=== PATIENT | female | born 1965 | race Caucasian/White ===

== ENCOUNTER → 2017-02-09 11:33 | Outpatient (CLI) | payer MEDICARE ==
[2016-11-06 14:49] VITALS: BMI 34.0
[~2017-02-09 11:33] MED LIST: ADVIL200 MG PO; BAYER CHEWABLE81 MG PO; DEMEROL50 MG PO; LEXAPRO10 MG PO; NICODERM C1 PATCH .3 TRANSDERM; PLAVIX75 MG PO; VALIUM 2 MG TAB2 MG PO
== END | disposition home or self-care (01) ==
LOC: D.RAD 11:33
DX: M16.12 Unilateral primary osteoarthritis, left hip (principal)

== ENCOUNTER 2017-07-09 19:43 | Emergency (ER) | payer MEDICARE ==
[2016-11-06 14:49] VITALS: BMI 34.0
== END 2017-07-09 21:25 | disposition home or self-care (01) ==
LOC: D.ER 19:43
DX: S92.521A Displaced fracture of middle phalanx of right lesser toe(s), initial encounter for closed fracture (principal); X58.XXXA Exposure to other specified factors, initial encounter; E11.9 Type 2 diabetes mellitus without complications; F17.200 Nicotine dependence, unspecified, uncomplicated

== ENCOUNTER → 2017-07-13 19:22 | Outpatient (CLI) | payer MEDICARE ==
[2016-11-06 14:49] VITALS: BMI 34.0
== END | disposition home or self-care (01) ==
LOC: D.SLEEP 07-06 08:00
DX: G47.19 Other hypersomnia (principal)

== ENCOUNTER → 2017-08-21 08:48 | Outpatient (CLI) | payer MEDICARE ==
[2016-11-06 14:49] VITALS: BMI 34.0
[~2017-08-21 08:48] MED LIST changes: +FLECTOR1 PATCH TRANSDERM; +LIPITOR10 MG PO; +MULTIPLE VITAMI1 TA1 PO; +VICTOZA0.6 MG/0.1 SQ; +ZANAFLEX4 MG PO
--- NOTE | 2017-08-27 12:47 | EC ---
PATIENT:ROJAS PANDA DATE OF SERVICE: 08/21/17 SEX: F MEDICAL RECORD: [id number] DATE OF : 67 LOCATION:[facility] AGE OF PATIENT: 52 ADMISSION DATE: 08/21/17 REFERRING PHYSICIAN: INTERPRETING PHYSICIAN: RICH OWEN MD ECHOCARDIOGRAM REPORT ECHO CHARGES 4 ECHO COMPLETE CLINICAL DIAGNOSIS: CAD/CP ECHOCARDIOGRAPHIC MEASUREMENTS (adult normal given) AC root (d.<3.7cm) 2.6 cm LV Septum d (<1.2 cm> 1.3 cm Valve Excursion 1.6 cm LV Septum (systole) 1.5 cm Left Atria (s.<4.0cm> 3.2 cm LVPW d(<1.2cm) 1.2 cm RV (d.<2.3cm) 2.5 cm LVPW (sytole) 1.8 cm LV diastole(<5.6CM) 4.5 cm MV E-F(>70mm/sec) cm LV systole 2.6 cm LVOT Diameter 1.6 cm MV exc.(>10mm) cm Est.ejection fraction (50-75%) % Pericardial Effusion N DOPPLER: LVIT cm/sec A 55.0 cm/sec E 86.0 cm/sec LA cm/sec RVSP 17.1 mmHg LVOT 122 cm/sec AOP1/2T m/s Asc. Ao 166 cm/sec RVOT 60.0 cm/sec RA cm/sec PA 90.0 cm/sec AV Gradient Peak 11.1 mmHg AV Mean 6.6 mmHg AV Area 1.3 cm MV Gradient Peak 4.8 mmHg MV Mean 1.4 mmHg MV Area cm COMMENTS: Ham Pumper: Flory DAVIDOE Loan Examiner: Monique Owen TAPE# PACS DATE OF SERVICE: 08/21/2017 PROCEDURE: Transthoracic echocardiogram. FINDINGS: 1. Left ventricle appears to have mild concentric left ventricular hypertrophy. The ejection fraction is 60% to 65%. There is no regional wall motion abnormalities demonstrated on this study. Inflow characteristics are normal. 2. The mitral valve appears to be normal function. There is no evidence of significant mitral regurgitation. ECHOCARDIOGRAM REPORT [id number] ROJAS PANDA 3. The tricuspid valve has normal function with normal right ventricular systolic pressure. 4. The right ventricle has normal size, normal function. There may be mild right ventricular hypertrophy. 5. The right atrium has normal size, normal function. 6. The aortic valve has normal structure, normal function. 7. The pericardium is normal. 8. Interatrial septum appears to be normal. CONCLUSIONS: The patient has evidence of left ventricular hypertrophy. It is mild in nature with preserved LV systolic function; otherwise, normal echocardiogram. TRANSINT:[id number] Voice Confirmation ID: [id number] DOCUMENT ID: [id number] RICH OWEN MD at 1247 CC: [id number] DICTATION DATE: 08/24/17 0753 ASSEMBLY ASSOCIATE: 08/24/17 0838 [facility] CLI 08/21/17 [id number] [place] [address]
== END | disposition home or self-care (01) ==
LOC: D.ECHO 08:48
DX: I25.10 Atherosclerotic heart disease of native coronary artery without angina pectoris (principal); I07.9 Rheumatic tricuspid valve disease, unspecified

== ENCOUNTER 2017-09-08 06:17 | Outpatient (CLI) | payer MEDICARE ==
--- NOTE | ~2017-09-08 | HEMODYNAMI ---
PATIENT:ROJAS PANDA MEDICAL RECORD: [id number] : 67 LOCATION:[facility] ADMISSION DATE: 09/08/17 Generatedon:09/08/20178:38 Patient name: ROJAS PANDA Patient #: [id number] SSN: : 1965 Date of study: 09/08/2017 Page: Of Hemodynamic Procedure Report Patient Data Patient Demographics Procedure consent was obtained First Name: ROJAS Gender: Female Last Name: AMARILYS : 1965 Middle Initial: PHUC Age: 52 year(s) Patient #: [id number] Race: Additional ID: [id number] Contact details [address]: [address] [place] [address] State: [place] City: [place] Zip code: [address] Past Medical History Allergies Allergen Reaction Date Comments Reported Other allergy 11/07/2016 PCN Penicillins 09/08/2017 Admission Admission Data Admission Date: 09/08/2017 Admission Time: 6:17 Lab Results Lab Result Date: 09/08/2017 Lab Result Time: 0:00 Biochemistry Name Units Result Min Max BUN mg/dl 7 --(*---)-- 7 18 Creatinine mg/dl 0.9 --(-*--)-- 0.6 1.3 CBC Name Units Result Min Max Hemoglobin g/dl 13.9 --(*---)-- 13.5 17.5 Procedure Procedure Types Cath Procedure Diagnostic Procedure C [facility] w/Coronaries Procedure Description Procedure Date Procedure Date: 09/08/2017 Procedure Start Time: 8:19 Procedure End Time: 8:37 Procedure Staff Name Function Asia Alston MD Ordering physician Bear Samuel MD Performing Physician Elmira Guillen RT Scrub Semaj Morocho RN Nurse Hank Schroeder RT Monitor Procedure Data Cath Procedure Fluoroscopy Diagnostic fluoroscopy Total fluoroscopy Time: 3.9 time: 3.9 min min Diagnostic fluoroscopy Total fluoroscopy dose: 460 dose: 460 mGy mGy Contrast Material Contrast Material Type Amount (ml) Isovue 300 42 Entry Location Entry Primary Successful Side Size Upsize Upsize Entry Closure Walker ccessful Closure Location (Fr) 1 (Fr) 2 (Fr) Remarks Device Remarks Radial Right 6 Fr Mechanical artery Short Compression Estimated blood loss: 10 ml Diagnostic catheters Device Type Used For End Catheter Placement Diagnostic Terumo 5Fr Procedure Badger 110cm catheter Diagnostic Infinity 5Fr AR MOD Catheter Procedure Medications Medication Administration Route Dosage Oxygen NC 2 l/min Benadryl I.V. 50 mg Lidocaine 2% added to field 20 Heparin Flush Bag added to field 2 bags (1000units/500ml NS) 0.9% NaCl I.V. 100 ml/hr Versed I.V. 2 mg Fentanyl I.V. 25 mcg Radial Cocktail I.A. 1 syringe (Verapomil 2mg/Nitro 400mcg/Heparin 1500units) Hemodynamics Rest HGB: 13.9 (g/dl) Heart Rate: 0 (bpm) Pressure Samples Time Site Value (mmHg) Purpose Heart Use Rate(bpm) 8:29 LV 108/8,10 Snapshot 65 8:30 AO 107/76(91) Pullback 66 8:30 LV 113/11,14 Pullback 66 Gradients Valve Time Site 1 Site 2 Mean SEP/DFP Peak To Heart Use (mmHg) (sec/min) Peak Rate (mmHg) (bpm) Aortic 8:30 LV AO 6 16 6 66 113/11,14 107/76(91) Calculations Valve P-P Mean Valve Index Valve Source Name Gradient Area Flow (cm2) Aortic 6 6 6 6 Snapshots Pre Cath Intra NCS Post Cath Vital Signs Time Heart Resp SPO2 etCO2 NIBP (mmHg) Rhythm Pain Sedation Rate (ipm) (%) (mmHg) Status Level (bpm) 8:08:35 61 25 97 0 123/77(92) NSR 0 (11) 10(A) , No pain 8:13:20 64 24 96 16.5 121/72(98) NSR 0 (11) 10(A) , No pain 8:18:06 58 14 99 11.2 116/64(101) NSR 0 (11) 10(A) , No pain 8:22:51 61 15 96 40.6 129/69(94) NSR 0 (11) 10(A) , No pain 8:27:32 65 16 98 35.3 107/55(80) NSR 0 (11) 10(A) , No pain 8:32:12 66 14 96 45.9 107/57(81) NSR 0 (11) 10(A) , No pain 8:36:53 70 16 27 101/63(76) NSR 0 (11) 10(A) , No pain Medications Time Medication Route Dose Verified Delivered Reason Notes E ffectiveness by by 8:16:18 Oxygen NC 2 l/min Bear Buffie used for Jimmie Morocho RN procedure 8:16:31 Benadryl I.V. 50 mg Bear Buffie used for Jimmie Morocho RN procedure 8:20:39 Lidocaine 2% added 20ml Bear Bear for local to vial Jimmie Samuel MD anesthetic field HOYT 8:20:46 Heparin Flush added 2 bags Bear Bear used for Bag to Jimmie Samuel MD procedure (1000units/500ml field HOYT NS) 8:21:32 0.9% NaCl I.V. 100 Bear Buffie Per ml/hr Jimmie cook MD 8:21:44 Versed I.V. 2 mg Bear Buffie for sedation Jimmie Morocho RN, MD 8:21:53 Fentanyl I.V. 25 mcg Bear Buffie Per Jimmie cook MD 8:23:49 Radial Cocktail I.A. 1 Bear Bear for (Verapomil syringe Jimmie Samuel MD vasodilation 2mg/Nitro 400mcg/Heparin 1500units) Procedure Log Time Note 7:48:17 Diagnostic Cath Status : Elective 7:57:17 Semaj Morocho RN sent for patient. Start room use. 7:57:20 Time tracking: Regular hours 7:57:27 Plan of Care:Hemodynamics will remain stable., Cardiac rhythm will remain stable., Comfort level will be maintained., Respiratory function will remain adequate., Patient/ family verbilizes understanding of procedure., Procedure tolerated without complication., Recovers from procedure without complications.. 8:02:22 H&P Date Dictated: 09/02/2017 Within 30 days and on chart., H&P Addendum completed by physician on day of procedure. (MUST COMPLETE FOR ALL OUTPATIENTS). 8:03:40 Patient received from Pre/Post Procedure Room to CCL 1 Alert and oriented. Tansferred to table in Supine position. 8:03:41 Warm blankets applied, and pawan hugger turned on for patient comfort. 8:03:42 Correct patient and procedure confirmed by team. 8:03:43 Signed procedure consent form obtained from patient. 8:03:44 ECG and BP/O2 sat monitors applied to patient. 8:03:45 Full Disclosure recording started 8:07:42 Vital chart was started 8:07:43 Baseline sample Acquired. 8:08:30 Baseline sample Acquired. 8:08:35 Rhythm: sinus rhythm 8:08:37 Baseline sample Acquired. 8:08:44 Pre-procedure instructions explained to patient. 8:08:44 Pre-op teaching completed and patient verbalized understanding. 8:08:47 Family in waiting room. 8:08:57 Patient NPO since Midnight. 8:09:06 Patient allergic to Penicillins 8:09:11 Is the patient allergic to Iodine/contrast media? No. 8:09:16 Is patient on blood thinner?Yes 8:09:20 ACC The patient was administered the following blood thiners within the last 24 hours: ACCPlavix 8:09:36 Patient diabetic? Yes. 8:09:50 If diabetic: On Metformin? No 8:09:55 Patient not . Patient has had tubal. 8:09:58 ----Pre-sedation anethsthesia assessment.---- 8:10:01 Previous problem with sedation/anesthesia? No ? 8:10:03 Snore? Yes 8:10:04 Sleep apnea? No 8:10:06 Deviated septum? No 8:10:07 Opens mouth fully? Yes 8:10:08 Sticks out tongue? Yes 8:10:13 Airway obstruction? No ? 8:10:16 Dentures? No ? 8:10:28 Pre procedure: right dorsailis pedis pulse 1+ Palpable, but thready & weak; easily obliterated 8:10:33 Patient pain scale 0/10 ?. 8:10:57 IV patent on arrival in left hand with 0.9% NaCl at [facility]. 8:15:21 Lab Result : BUN 7 mg/dl 8:15:21 Lab Result : Hemoglobin 13.9 g/dl 8:15:21 Lab Result : Creatinine 0.9 mg/dl 8:15:37 Lab results completed and on chart. 8:15:43 Right Radial & Right Groin area was prepped with chlora-prep and draped in sterile fashion 8:15:46 Alarms reviewed by R. N. 8:15:48 Sharps counted by scrub and verified by R.N. 8:15:51 Physician arrived 8:15:53 --------ALL STOP TIME OUT------ 8:15:54 Final Timeout: patient, procedure, and site verified with staff and physician. All members of the team are in agreement. 8:15:56 Right Radial & Right Groin site verified by team. 8:16:00 Physical assessment completed. ASA score P 2 - A patient with mild systemic disease as per Bear Samuel MD. 8:16:06 Sedation plan: IV Moderate Sedation Versed, Fentanyl 8:16:18 Oxygen 2 l/min NC was administered by Semaj Morocho RN; used for procedure; 8:16:31 Benadryl 50 mg I.V. was administered by Semaj Morocho RN; used for procedure; 8:19:18 Use device set Radial Dx 8:19:20 Acist Syringe opened to sterile field. 8:19:20 Medline Cath Pack opened to sterile field. 8:19:21 Bag Decanter opened to sterile field. 8:19:21 Terumo 6Fr Slender Glidesheath opened to sterile field. 8:19:22 St Hamilton 260cm J .035 wire opened to sterile field. 8:19:23 Acist Hand Control opened to sterile field. 8:19:23 Acist Manifold opened to sterile field. 8:19:24 Tegaderm 4 x 4 opened to sterile field. 8:19:25 MBrace Wrist Support opened to sterile field. 8:19:27 Procedure started. 8:19:33 Local anesthetic to right radial artery with Lidocaine 2% by Bear Samuel MD.INITIAL ACCESS ONLY 8:20:39 Lidocaine 2% 20ml vial added to field was administered by Bear Samuel MD; for local anesthetic; 8:20:46 Heparin Flush Bag (1000units/500ml NS) 2 bags added to field was administered by Bear Samuel MD; used for procedure; 8:21:32 0.9% NaCl 100 ml/hr I.V. was administered by Semaj Morocho RN; Per physician; 8:21:44 Versed 2 mg I.V. was administered by Semaj Morocho RN; for sedation; 8:21:53 Fentanyl 25 mcg I.V. was administered by Semaj Morocho RN; Per physician; 8:22:34 A 6 Fr Short sheath was inserted into the Right Radial artery 8:23:10 A Diagnostic Terumo 5Fr Badger 110cm catheter was advanced over the wire and used for Procedure. 8:23:49 Radial Cocktail (Verapomil 2mg/Nitro 400mcg/Heparin 1500units) 1 syringe I.A. was administered by Bear Samuel MD; for vasodilation; 8:26:27 LCA angiography performed. 8:27:11 Catheter removed. 8:28:07 A Diagnostic Infinity 5Fr AR MOD Catheter was advanced over the wire and used for . 8:29:39 LV hemodynamics recorded. 8:29:41 LV gram done using CAAL 8:29:50 EF : 55 % 8:31:20 RCA angiography performed. 8:32:32 Catheter removed. 8:32:54 Terumo TR Band Standard opened to sterile field. 8:33:13 Sheath removed intact; hemostasis achieved with Mechanical Compression to the Right Radial artery. 8:33:18 Procedure ended.(Physican Out) 8:33:31 Fluoroscopy time 03.90 minutes. 8:33:37 Fluoroscopy dose: 460 mGy 8:33:37 Flurop Dose total: 460 8:33:46 Contrast amount:Isovue 300 42ml. 8:33:47 Sharps counted by scrub and verified by R.N. 8:36:38 TR band inflated with 11cc of air. 8:36:40 Insertion/operative site no bleeding no hematoma. 8:36:49 Post right radial artery:stable 8:36:54 Post-procedure physical assessment completed. ASA score P 2 - A patient with mild systemic disease as per Bear Samuel MD. 8:37:00 Post procedure rhythm: unchanged., sinus rhythm 8:37:05 Estimated blood loss: 10 ml 8:37:06 Post procedure instruction explained to patient.Patient verbalizes understanding. 8:37:07 Patient needs reinforcement of post procedure teaching. 8:37:08 Procedure and supply charges have been captured, reviewed, submitted and are correct. 8:37:13 Vital chart was stopped 8:37:14 See physician's report for complete and final results. 8:37:16 Report given to Pre/Post Procedure Room. 8:37:20 Patient transfered to Pre/Post Procedure Room with Stretcher. 8:37:23 Procedure ended. 8:37:23 Full Disclosure recording stopped 8:37:28 End room use (Document Last) Device Usage Item Name Manufacture Quantity Catalog Hospital Part Current Minimal Lot# / Number Charge Number Stock Stock Serial# Code Acist Acist 1 [id number] [id number] 602490 565888 20 Syringe Medical [employer] Inc Medline Cardinal 1 [id number] 22037 417062 5 Cath Pack Health Bag Microtek 1 2002S 536887 57194 825490 5 Decanter Medical Inc. Terumo 6Fr Terumo 1 [id number] 609826 699335 069844 [address] St Hamilton 1 786306 113752 436004 518739 30 260cm J .035 wire Acist Hand Acist 1 33757 351951 347308 119332 5 Control Medical Systems Inc Acist Acist 1 38732 770070 084478 884059 5 Manifold Medical Systems Inc Tegaderm 4 3M 1 1626W 788260 718292 244104 5 x 4 MBrace Advanced 1 140-0250-00 575911 04236 671578 5 Wrist Vascular Support Dynamics Diagnostic Terumo 1 90-5018 396223 649915 462395 5 Terumo 5Fr Badger 110cm catheter Diagnostic Cardinal 1 [id number] 734204 172687 193374 15 [employer] 5Fr AR MOD Catheter Terumo TR Terumo 1 [id number] 265202 307970 417822 40 Band Standard Signature Audit [place] Stage Time Signature Unsigned Intra-Procedure 09/08/2017 Hank Schroeder 8:38:03 AM RT(R) (CV) Signatures Monitor : Hank Schroeder RT Signature : Date : Time : [facility] [address] [place] [address]
[~2017-09-08 06:17] MED LIST changes: -FLECTOR1 PATCH TRANSDERM; -LIPITOR10 MG PO; -MULTIPLE VITAMI1 TA1 PO; -VICTOZA0.6 MG/0.1 SQ; -ZANAFLEX4 MG PO
[2017-09-08] MEDS ORDERED: LIPITOR10 MG PO (06:41)
[2017-09-08] MEDS ORDERED: MULTIPLE VITAMI1 TA1 PO (06:42)
[2017-09-08] MEDS ORDERED: FLECTOR1 PATCH TRANSDERM (06:42)
[2017-09-08] MEDS ORDERED: ZANAFLEX4 MG PO (06:43)
[2017-09-08] MEDS ORDERED: VICTOZA0.6 MG/0.1 SQ (06:45)
[2017-09-08 06:50] VITALS: BP 123/79; BMI 33.2
[2017-09-08 07:10] LABS: BASOPHILS 0.6 % (0-2); EOSINOPHILS 2.2 % (0-7); HEMOGLOBIN 13.9 g/dL (12-16); IMMATURE GRANULOCYTES 0.2 % (0-5); LYMPHOCYTES 19.8 % (15-50); MCH 28.5 pg (26.0-34.0); MCHC 33.1 g/dL (31.0-37.0); MCV 86.2 fL (80.0-100.0); MEAN PLATELET VOLUME 10.9 fL (7.4-10.4); MONOCYTES 8.3 % (2-11); NEUTROPHILS 68.9 % (40-80); PLATELET COUNT 370 10x3/uL (130-400); RBC 4.87 10x6/uL (4.00-5.40); RDW 13.5 % (11.5-14.5); WBC 9.4 10x3/uL (4.8-10.8)
[2017-09-08 07:18] LABS: ANION GAP 12.9 mmol/L (8-16); CALCIUM 9.5 mg/dL (8.5-10.1); CREATININE - SERUM 0.9 mg/dL (0.6-1.3); POTASSIUM - SERUM 3.9 mmol/L (3.5-5.1)
[2017-09-08 07:24] LABS: CHOL - HDL RATIO 3.5 ratio (2.3-4.1); LDL-HDL RATIO 1.8 ratio (1.5-3.5)
--- NOTE | 2017-09-08 10:00 | NUR ---
3CC OF AIR REMOVED FROM TR BAND, NO BLEEDING NOTED. VSS. 2L NC, NO RESP DISTRESS. VSS. DENIES ANY NAUSEA OR PAIN. FAMILY AT BEDSIDE, CALL LIGHT WITHIN REACH.
--- NOTE | 2017-09-08 10:15 | NUR ---
3CC OF AIR REMOVED FROM TR BAND, NO BLEEDING NOTED. DRINK AND SANDWICH TRAY GIVEN. NO C/O NAUSEA.
--- NOTE | 2017-09-08 10:30 | NUR ---
4CC OF AIR REMOVED FROM TR BAND, NO BLEEDING NOTED.
--- NOTE | 2017-09-08 10:40 | NUR ---
LEFT PIV D/C'D WITH CATHETER INTACT, BAND AID TO SITE. UP TO BEDSIDE TO GET DRESSED.
--- NOTE | 2017-09-08 10:55 | NUR ---
TO RESTROOM TO VOID.
--- NOTE | 2017-09-08 10:55 | NUR ---
DISCHARGE INSTRUCTIONS GIVEN, VERBALIZED UNDERSTANDING.
--- NOTE | 2017-09-08 11:05 | NUR ---
TAKEN OUT VIA WHEELCHAIR BY CATH CMM TECHNICIAN. LEFT FACILITY WITH AND ALL PERSONAL BELONGINGS.
== END 2017-09-08 11:05 | disposition home or self-care (01) ==
LOC: D.CATH 06:17
PROVIDERS: Internal Medicine Cardiovascular Disease
DX: I25.119 Atherosclerotic heart disease of native coronary artery with unspecified angina pectoris (principal); T82.855A Stenosis of coronary artery stent, initial encounter; R94.39 Abnormal result of other cardiovascular function study; Z01.812 Encounter for preprocedural laboratory examination

== ENCOUNTER → 2017-11-02 13:03 | Outpatient (CLI) | payer MEDICARE ==
[~2017-11-02 13:03] MED LIST changes: +FLECTOR1 PATCH TRANSDERM; +LIPITOR10 MG PO; +MULTIPLE VITAMI1 TA1 PO; +VICTOZA0.6 MG/0.1 SQ; +ZANAFLEX4 MG PO
== END | disposition home or self-care (01) ==
LOC: D.CT 10-26 14:30
DX: I73.9 Peripheral vascular disease, unspecified (principal)

== ENCOUNTER 2019-04-07 03:29 | Observation (INO) | payer MEDICARE ==
[2019-04-07] VITALS (11 sets, daily range): BP systolic 102–124; BP diastolic 49–77; Ht 152.4 cm; Wt 80.5 kg
[~2019-04-07] VITALS: Ht 152.4 cm; Wt 80.5 kg
--- NOTE | ~2019-04-07 | OP ---
PATIENT NAME: ROJAS PANDA MEDICAL RECORD: [id number] :67 LOCATION:D.M2 D.2124 ADMISSION DATE:04/07/19 SURGEON: LAYO MATUTE MD DATE OF OPERATION: 04/08/2019 PROCEDURES: 1. Left heart catheterization. 2. Selective coronary angiography. 3. Left ventriculogram. INDICATION: Angina, coronary artery disease, previous PTCA stent, bradycardia, and noninsulin dependent diabetes. PROCEDURE IN DETAIL: After informed consent was obtained and after a detailed description of the risks, benefits as well as alternative therapies, the patient elected to proceed with angiogram and heart catheterization. The right radial area was prepped and draped in normal sterile fashion. Right radial artery was cannulated via modified Seldinger technique with placement of 5-Icelandic sheath. All catheters exchanged through this sheath. FINDINGS: The left ventriculogram was performed in standard 30-degree CAAL view, reveals good cardiac wall motion throughout all segments. Overall ejection fraction estimated 60%. SELECTIVE CORONARY ANGIOGRAPHY: 1. Left main has no significant angiographic disease. 2. Left anterior descending has mild irregularities, but no flow-limiting stenosis. 3. The left circumflex has mild irregularities, but no flow-limiting stenosis. 4. The right coronary has previously placed stents, these are widely patent with no significant restenosis. No disease elsewise at the RCA or its branches. OVERALL IMPRESSION: Wide patency of the previously placed stents, no disease elsewise. Normal LV function. Chest pain is most likely secondary to her sleep apnea, not cardiac in nature. TRANSINT:[id number] Voice Confirmation ID: [id number] DOCUMENT ID: [id number] LAYO MATUTE MD CC: [id number] DICTATION DATE: 04/08/19 0857 CHIEF CONTROLLER STATION: 04/08/19 1139 ADM IN [facility] [address] [place] [address]
--- NOTE | ~2019-04-07 | HEMODYNAMI ---
PATIENT:ROJAS PANDA MEDICAL RECORD: [id number] : 67 LOCATION:[facility] D.[address] CLINICT# [id number] ADMISSION DATE: 04/07/19 Generatedon:04/08/20198:57 Patient name: ROJAS PANDA Patient #: [id number] SSN: : 1965 Date of study: 04/08/2019 Page: Of Hemodynamic Procedure Report Patient Data Patient Demographics Procedure consent was obtained First Name: ROJAS Gender: Female Last Name: AMARILYS : 1965 Middle Initial: PHUC Age: 53 year(s) Patient #: [id number] Race: Additional ID: [id number] Contact details [address]: [address] [place] [address] State: [place] City: [place] Zip code: [address] Past Medical History Allergies Allergen Reaction Date Comments Reported Other allergy 11/07/2016 PCN Penicillins 09/08/2017 Admission Admission Data Admission Date: 04/07/2019 Admission Time: 12:44 Admit Source: Other Room #: D.2124 Height (in.): 60 BSA: 1.78 (m2) Height (cm.): 152.4 BMI: 34.88 (kg/m2) Weight (lbs.): 178.58 Weight (kg.): 81 Lab Results Lab Result Date: 04/08/2019 Lab Result Time: 0:00 Biochemistry Name Units Result Min Max BUN mg/dl 13 --(--*-)-- 7 18 Creatinine mg/dl 0.8 --(-*--)-- 0.6 1.3 CBC Name Units Result Min Max Hemoglobin g/dl 13.1 -*(----)-- 13.5 17.5 Procedure Procedure Types Cath Procedure Diagnostic Procedure [facility] w/Coronaries Procedure Description Procedure Date Procedure Date: 04/08/2019 Procedure Start Time: 8:49 Procedure End Time: 8:56 Procedure Staff Name Function Kartik Tirado MD Performing Physician Christine Godfrey RN Nurse Hanane Francis RT Scrub Dyllan Elizabeth RT Monitor Procedure Data Cath Procedure Fluoroscopy Diagnostic fluoroscopy Total fluoroscopy Time: 1.4 time: 1.4 min min Diagnostic fluoroscopy Total fluoroscopy dose: 503 dose: 503 mGy mGy Contrast Material Contrast Material Type Amount (ml) Isovue 370 51 Entry Location Entry Primary Successful Side Size Upsize Upsize Entry Closure Walker ccessful Closure Location (Fr) 1 (Fr) 2 (Fr) Remarks Device Remarks Radial Right 6 Fr Mechanical artery Short Compression Estimated blood loss: 10 ml Diagnostic catheters Device Type Used For End Catheter Placement DIAGNOSTIC Mackinaw 110cm 5 Procedure Fr catheter ([id number]) Procedure Complications No complications Procedure Medications Medication Administration Route Dosage 0.9% NaCl I.V. 100 ml/hr Oxygen etCO2 Nasal cannula 2 l/min Lidocaine 2% added to field 20 Heparin Flush Bag added to field 2 bags (1000units/500ml NS) Radial Cocktail added to field 1 syringe (Verapamil 2mg/Nitro 400mcg/Heparin 1500units) Versed I.V. 2 mg Fentanyl I.V. 50 mcg Versed I.V. 1 mg Fentanyl I.V. 25 mcg Hemodynamics Rest BSA: 1.78 (m2) HGB: 13.1 (g/dl) O2 Consumption: Estimated: 158.78 (ml/min) O2 Co nsumption indexed: Estimated:89.2 (ml/min/m) Heart Rate: 49 (bpm) Snapshots Pre Cath Intra NCS Post Cath Vital Signs Time Heart Resp SPO2 etCO2 NIBP (mmHg) Rhythm Pain Sedation Rate (ipm) (%) (mmHg) Status Level (bpm) 8:12:31 49 13 99 38.3 127/75(87) SB 0 (11) 10(A) , No pain 8:16:45 54 10 95 48.9 127/68(88) SB 0 (11) 10(A) , No pain 8:20:55 56 14 96 49.6 139/83(102) SB 0 (11) 10(A) , No pain 8:25:08 56 16 96 47.4 146/82(103) SB 0 (11) 10(A) , No pain 8:29:22 63 16 98 51.9 136/87(115) SB 0 (11) 10(A) , No pain 8:33:32 65 15 98 54.2 136/86(118) SB 0 (11) 10(A) , No pain 8:37:42 62 16 98 44.4 130/86(92) SB 0 (11) 10(A) , No pain 8:41:52 57 15 98 47.4 125/79(102) SB 0 (11) 10(A) , No pain 8:45:58 62 15 98 41.4 119/82(92) SB 0 (11) 9(A) , No pain 8:49:57 63 15 97 48.9 118/93(110) SB 0 (11) 9(A) , No pain 8:53:59 69 16 98 49.7 123/81(99) SB 0 (11) 10(A) , No pain Medications Time Medication Route Dose Verified Delivered Reason Notes Ef fectiveness by by 8:12:15 0.9% NaCl I.V. 100 Kartik Christine used for ml/hr Celestino Godfrey dry kiln operator helper 8:12:21 Oxygen etCO2 2 l/min Kartik Christine used for Nasal Celestino Godfrey procedure cannula RN 8:12:26 Lidocaine 2% added 20ml Kartik Kartik for local to vial Celestino Tirado MD anesthetic field 8:12:30 Heparin Flush added 2 bags Kartik Kartik used for Bag to Celestino Tirado MD procedure (1000units/500ml field NS) 8:12:36 Radial Cocktail added 1 Kartik Kartik used for (Verapamil to syringe Celestino Tirado MD procedure 2mg/Nitro field 400mcg/Heparin 1500units) 8:42:13 Versed I.V. 2 mg Kartik Christine for Celestino Godfrey sedation RN 8:42:19 Fentanyl I.V. 50 mcg Kartik Christine for Celestino Godfery sedation RN 8:45:04 Fentanyl I.V. 25 mcg Kartik Christine for Celestino Godfrey sedation RN 8:45:55 Versed I.V. 1 mg Kartik Christine for Celestino Godfrey sedation security systems administrator Log Time Note 7:47:22 Lab Result : BUN 13 mg/dl 7:47:22 Lab Result : Hemoglobin 13.1 g/dl 7:47:22 Lab Result : Creatinine 0.8 mg/dl 7:48:36 Admit Source: Other 7:48:40 Patient Weight : 178.58 lbs 7:48:44 Patient Height : 60 inches 7:57:35 Hank Schroeder RT(R) (CV) sent for patient. Start room use. 7:57:36 Time tracking: Regular hours (M-F 7:00 - 5:00) 7:57:41 Plan of Care:Hemodynamics will remain stable., Cardiac rhythm will remain stable., Comfort level will be maintained., Respiratory function will remain adequate., Patient/ family verbilizes understanding of procedure., Procedure tolerated without complication., Recovers from procedure without complications.. 8:02:04 Patient received from Med II to CCL 2 Alert and oriented. Tansferred to table in Supine position. 8:02:05 Warm blankets applied, and pawan hugger turned on for patient comfort. 8:02:06 Correct patient and procedure confirmed by team. 8:02:07 Signed procedure consent form obtained from patient. 8:02:09 ECG and BP/O2 sat monitors applied to patient. 8:11:22 Vital chart was started 8:11:23 Baseline sample Acquired. 8:11:26 Rhythm: sinus rhythm 8:11:27 Full Disclosure recording started 8:11:31 H&P Date Dictated: 04/08/2019 Within 30 days and on chart., H&P Addendum completed by physician on day of procedure. (MUST COMPLETE FOR ALL OUTPATIENTS). 8:11:32 Pre-procedure instructions explained to patient. 8:11:33 Pre-op teaching completed and patient verbalized understanding. 8:11:34 Family in waiting room. 8:11:35 Patient NPO since Midnight. 8:11:37 Is the patient allergic to Iodine/contrast media? No. 8:11:38 Was the patient premedicated? No 8:11:40 Is patient on blood thinner?No 8:11:41 Patient diabetic? Yes. 8:11:44 Previous problem with sedation/anesthesia? No ? 8:11:46 Snore? Yes 8:11:47 Sleep apnea? Yes 8:11:48 Deviated septum? No 8:11:49 Opens mouth fully? Yes 8:11:50 Sticks out tongue? Yes 8:11:52 Airway obstruction? No ? 8:12:14 Dentures? Yes lower in tight 8:12:15 0.9% NaCl 100 ml/hr I.V. was administered by Christine Godfrey RN; used for procedure; 8:12:21 Oxygen 2 l/min etCO2 Nasal cannula was administered by Christine Godfrey RN; used for procedure; 8:12:21 Patient pain scale 0/10 ?. 8:12:26 Lidocaine 2% 20ml vial added to field was administered by Kartik Tirado MD; for local anesthetic; 8:12:28 IV patent on arrival in left forearm with 0.9% NaCl at KVO. 8:12:30 Heparin Flush Bag (1000units/500ml NS) 2 bags added to field was administered by Kartik Tirado MD; used for procedure; 8:12:30 Lab results completed and on chart. 8:12:34 Right Radial & Right Groin area was prepped with chlora-prep and draped in sterile fashion 8:12:35 Alarms reviewed by R. N. 8:12:36 Radial Cocktail (Verapamil 2mg/Nitro 400mcg/Heparin 1500units) 1 syringe added to field was administered by Kartik Tirado MD; used for procedure; 8:12:36 Sharps counted by scrub and verified by R.N. 8:34:45 Use device set Radial Dx or PCI 8:34:47 Tegaderm 4 x 4 (1626W) opened to sterile field. 8:34:49 ACIST Hand Control (31799) opened to sterile field. 8:34:49 ACIST Manifold (27771) opened to sterile field. 8:34:50 ACIST Syringe (17312) opened to sterile field. 8:34:51 Medline Cath Pack ([id number]) opened to sterile field. 8:34:51 Bag Decanter (2002) opened to sterile field. 8:34:52 DIAGNOSTIC WIRE .035 260cm J wire (746016) opened to sterile field. 8:34:52 MBrace Wrist Support ([id number]) opened to sterile field. 8:34:53 SHEATH 6FR Slender (82-7020) opened to sterile field. 8:40:29 --------ALL STOP TIME OUT------ 8:40:29 Final Timeout: patient, procedure, and site verified with staff and physician. All members of the team are in agreement. 8:40:35 Right Radial & Right Groin site verified by team. 8:40:39 Maximum allowable Isovue 370 dose 300ml. Physician notified. (300ml for normal creatinines. For patients with creatinine of 1.7 or higher multiply weight(kg) x 5 divided by creatinine.) 8:40:43 Fire Safety Assessment: A--An alcohol-based skin anteseptic being used preoperatively., C--Open oxygen or nitrous oxide is being used., D--An ESU, laser, or fiber-optic light is being used. 8:40:46 Physical assessment completed. ASA score P 2 - A patient with mild systemic disease as per Kartik Tirado MD. 8:40:49 Sedation plan: IV Moderate Sedation Medication:Versed, Fentanyl 8:42:13 Versed 2 mg I.V. was administered by Christine Godfrey RN; for sedation; 8:42:19 Fentanyl 50 mcg I.V. was administered by Christine Godfrey RN; for sedation; 8:45:04 Fentanyl 25 mcg I.V. was administered by Christine Godfrey RN; for sedation; 8:45:55 Versed 1 mg I.V. was administered by Christine Godfrey RN; for sedation; 8:49:24 Procedure started. 8:49:29 Local anesthetic to right radial artery with Lidocaine 2% by Kartik Tirado MD.INITIAL ACCESS ONLY 8:50:05 A 6 Fr Short sheath was inserted into the Right Radial artery 8:50:13 A DIAGNOSTIC [place] 110cm 5 Fr catheter (167467) was advanced over the wire and used for Procedure. 8:51:03 LV angiography performed. 8:51:04 LV gram done using CAAL 8:51:09 EF : 60 % 8:51:37 Injector settings: Ml/sec: 7, Volume: 15, 8:51:42 LCA angiography performed. 8:52:58 RCA angiography performed. 8:53:29 Catheter removed. 8:53:31 TR BAND Standard ([id number]) opened to sterile field. 8:53:41 Sheath removed intact; hemostasis achieved with Mechanical Compression to the Right Radial artery. 8:53:44 Procedure ended.(Physican Out) 8:54:03 Fluoroscopy time 01.40 minutes. 8:54:44 Fluoroscopy dose: 503 mGy 8:54:44 Flurop Dose total: 503 8:54:48 Contrast amount:Isovue 370 51ml. 8:54:50 Sharps counted by scrub and verified by R.N. 8:54:52 TR band inflated with 12cc of air. 8:54:53 Insertion/operative site no bleeding no hematoma. 8:54:55 Post Procedure Pulses reassessed and unchanged 8:54:57 Post-procedure physical assessment completed. ASA score P 2 - A patient with mild systemic disease as per Kartik Tirado MD. 8:55:00 Post procedure rhythm: unchanged. 8:55:05 Estimated blood loss: 10 ml 8:55:06 Post procedure instruction explained to patient.Patient verbalizes understanding. 8:55:07 Patient needs reinforcement of post procedure teaching. 8:55:12 Procedure and supply charges have been captured, reviewed, submitted and are correct. 8:55:14 Procedure Complication : No complications 8:56:01 Vital chart was stopped 8:56:01 See physician's report for complete and final results. 8:56:03 Report given to PCU. 8:56:06 Patient transfered to PCU with Bed. 8:56:21 Procedure ended. 8:56:21 Full Disclosure recording stopped 8:56:31 End room use (Document Last) Device Usage Item Name Manufacture Quantity Catalog Hospital Part Current Minimal Lot# / Number Charge Number Stock Stock Serial# Code Tegaderm 4 3M 1 1626W [id number] [id number] 344994 5 x 4 (1626W) ACIST Hand Acist 1 87105 259406 793018 351510 5 Control Medical (88617) Systems Inc ACIST Acist 1 78691 123707 334495 359187 5 Manifold Medical (19832) Systems Inc ACIST Acist 1 75351 971716 228425 567584 20 Syringe Medical (93822) Systems Inc Medline Medline 1 [id number] 670270 20728 524938 5 Cath Pack ([id number]) Bag Microtek 1 2001S 279789 09019 169511 5 Decanter Medical Inc. () DIAGNOSTIC [facility] [place] 1 531302 109478 361268 979594 30 WIRE .035 260cm J wire (395949) MBrace Advanced 1 140-0250-00 593563 54811 310869 5 Wrist Vascular Support Dynamics ([id number]) SHEATH 6FR Terumo 1 [id number] 489407 290247 551054 5 Slender (47-6860) DIAGNOSTIC Terumo 1 83-1184 147485 206423 982467 5 [place] 110cm 5 Fr catheter (304818) TR BAND Terumo 1 [id number] 751403 086397 884370 40 Standard ([id number]) Signature Audit [place]bank Stage Time Signature Unsigned Intra-Procedure 04/08/2019 Dyllan Elizabeth 8:56:49 AM RT(R) Signatures Monitor : Dyllan Elizabeth RT Signature : Date : Time : [place] [id number]
--- NOTE | ~2019-04-07 | CN ---
PATIENT NAME:ROJAS BATES MEDICAL RECORD: [id number] : 67 LOCATION:D. D.2124 ADMIT DATE: 04/07/19 ACCOUNT: [id number] CONSULTING PHYSICIAN: LAYO MATUTE MD REFERRING PHYSICIAN: MONIQUE MACDONALD MD DATE OF CONSULTATION: 04/07/2019 CARDIOLOGY CONSULTATION ADMITTING DIAGNOSES: 1. Unstable angina. 2. Coronary artery disease. 3. Previous multivessel percutaneous transluminal coronary angioplasty stent. 4. Noninsulin-dependent diabetes. 5. Bradycardia. HISTORY OF PRESENT ILLNESS: Mrs. Bates has a past history of coronary artery disease, previous PTCA stent times 8. Her last was approximately 2 years ago. For the past 2 days, she has had increasing episodes of chest pain, chest discomfort compatible with angina just like that of her previous angina with radiation to her back. It got very severe today. She presented to the Emergency Room. She has taken multiple sublingual nitro prior to presentation with minimal relief. GI cocktail made no difference in the Emergency Room, morphine relieved the pain. She had recurrence of the pain, morphine again relieved the pain. She is currently pain free. Her EKG is with no significant acute ST-T abnormalities. Her heart rate is in the 40s and 50s. Her systolic blood pressures 103. PHYSICAL EXAMINATION: GENERAL APPEARANCE: Well-nourished, well-developed, appears stated age. Level of distress, comfortable. PSYCHIATRIC: Mental status, alert, normal affect. Orientation, oriented to time, place and person. EYES: Lids and conjunctiva, noninjected. No discharge, no pallor. ENT: Lips, teeth, gums, normal dentition. Oropharynx, no cyanosis, no pallor. NECK: Carotid arteries, bilateral normal upstroke, no bruits, no thrills. JUGULAR VEINS: No jugular venous pressure or distention. CERVICAL LYMPH NODES: Nontender, nonenlarged. THYROID: Not enlarged. Nontender. No nodules. LUNGS: Respiratory effort, unlabored. CHEST: Normal curvature. No thoracic deformity. No chest wall tenderness. Percussion, resonant. Auscultation, clear. No wheezes, no rales, no rhonchi. CARDIOVASCULAR: Precordial exam, nondisplaced. No heaves or pericardial thrills. Rate and rhythm, regular. Heart sounds, normal S1, normal S2. No S3, no gallop, no rub. Systolic murmur, not heard. Diastolic murmur, not heard. EXTREMITIES: No cyanosis, no edema. Peripheral pulses, full and equal in all extremities, except as noted. No bruits appreciated. ABDOMEN: Soft, nondistended. Normal aorta. No bruit. Nontender. No masses. Liver, nontender, no hepatomegaly. Spleen, nontender, no splenomegaly. MUSCULOSKELETAL: No joint tenderness. No joint swelling. No erythema. NEUROLOGICAL: Normal gait, normal strength, normal tone. SKIN: Warm and dry. OVERALL IMPRESSION: Recurrent angina in an unstable pattern just like that of her previous angina. At this time, there is no room for medical therapy CONSULT REPORT [id number] ROJAS BATES secondary to her low heart rate, blood pressure, we will try nitrates. No beta blockers were indicated secondary to her bradycardia. We will load her with Plavix, proceed with coronary angiography in the a.m. Further care depends upon findings of the angiography. TRANSINT:[id number] Voice Confirmation ID: [id number] DOCUMENT ID: [id number] LAYO MATUTE MD CC: [id number] DICTATION DATE: 04/07/19 154 SUPERVISOR SULFURIC ACID PLANT: 04/07/19 1950 ADM IN [facility] [address] [place] [address]
[2019-04-07] MEDS ORDERED: CELEXA20 MG PO (03:45)
[2019-04-07 04:05] LABS: EOSINOPHILS 2.9 % (0-7); HEMATOCRIT 39.8 % (36.0-48.0); HEMOGLOBIN 13.1 g/dL (12-16); IMMATURE GRANULOCYTES 0.2 % (0-5); LYMPHOCYTES 29.1 % (15-50); MCH 27.7 pg (26.0-34.0); MCHC 32.9 g/dL (31.0-37.0); MCV 84.1 fL (80.0-100.0); MEAN PLATELET VOLUME 10.6 fL (7.4-10.4); MONOCYTES 9.6 % (2-11); NEUTROPHILS 57.2 % (40-80); PLATELET COUNT 345 10x3/uL (130-400); RBC 4.73 10x6/uL (4.00-5.40); RDW 13.6 % (11.5-14.5); WBC 8.4 10x3/uL (4.8-10.8)
[2019-04-07 04:15] LABS: APTT 28.4 SECONDS (22.8-39.4); PROTIME 12.7 SECONDS (11.6-15.0)
[2019-04-07 04:18] LABS: ALT (SGPT) 34 U/L (10-68); AMYLASE - SERUM 39 U/L (25-115); CALC OSMOLALITY 275 mosm/kg (275-300); CALCIUM 9.2 mg/dL (8.5-10.1); CARBON DIOXIDE 26.6 mmol/L (21.0-32.0); CHLORIDE - SERUM 101 mmol/L (98-107); CREATININE - SERUM 0.8 mg/dL (0.6-1.3); GLUCOSE 133 mg/dL (74-106); LIPASE 234 U/L (73-393); MAGNESIUM - SERUM 2.2 mg/dL (1.8-2.4); SODIUM 137 mmol/L (136-145); UREA NITROGEN 13 mg/dL (7-18); eGFR NON AFRICAN AMERICAN 80 mL/min (90-120)
[2019-04-07 05:03] LABS: ALKALINE PHOSPHATASE 77 U/L (46-116); BILIRUBIN - TOTAL 0.21 mg/dL (0.2-1.3); CKMB 0.9 U/L (0.0-3.6); CREATINE KINASE 40 UL (21-215); PROTEIN - SERUM 7.3 g/dL (6.4-8.2); TROPONIN-I < 0.017 ng/mL (0.000-0.060)
--- NOTE | 2019-04-07 06:25 | NUR ---
PT RESTING NO DISTRESS NOTED. RR EVEN UNLABORED.
--- NOTE | 2019-04-07 07:12 | NUR ---
REPORT GIVEN TO LEE MCBRIDE
--- NOTE | 2019-04-07 07:15 | NUR ---
HAND OFF REPORT RECEIEVD FROM OFF GOING NURSE LEE RAYGOZA
--- NOTE | 2019-04-07 08:33 | NUR ---
PT GIVEN DIABETIC BREAKFAST TRAY ORDERED.
--- NOTE | 2019-04-07 09:57 | NUR ---
PT ALERT AND ORIENTED, LYING IN BED. RESPIRATIONS EVEN AND UNLABORED. PT WAS C/O SOME DISCOMFORT IN UPPER BACK BETWEEN SHOULDER BLADES WHEN ASA WAS ADMINISTERED. PT NOW STATES THAT SHE IS PAIN FREE. PT CONSUMED APPROX. 25% OF BREAKFAST TRAY. LIGHTS DIMMED FOR COMFORT. PT AWARE SHE IS BEING ADMITTED AND AWAITING BED ASSIGNMENT. DENIES ANY NEEDS, CALL LIGHT IN REACH, WILL CONTINUE TO MONITOR.
--- NOTE | 2019-04-07 11:55 | NUR ---
PT GIVEN DIABETIC LUNCH TRAY ORDERED. PT DENIES ANY NEEDS. CALL LIGHT IN REACH, WILL CONTINUE TO MONITOR.
[2019-04-07 12:15] LABS: CKMB 0.8 U/L (0.0-3.6); CREATINE KINASE 37 UL (21-215)
[2019-04-07 12:17] LABS: TROPONIN-I < 0.017 ng/mL (0.000-0.060)
--- NOTE | 2019-04-07 13:39 | NUR ---
ROOM 2124 ASSIGNED TO PT AT 1244. THIS NURSE CALLED REPORT TO VANESSA AT 1321. MINUTES LATER, RECEIVING NURSE CALLED ED AND STATED THAT PT WAS UNABLE TO COME TO ASSIGNED BED D/T CONFLICT WITH ROOM ASSIGNEMENT AND ANOTHER PT. CHARGE NURSE MADE AWARE.
[2019-04-07 16:44] LABS: CKMB 0.7 U/L (0.0-3.6); CREATINE KINASE 37 UL (21-215)
[2019-04-07 16:45] LABS: TROPONIN-I < 0.017 ng/mL (0.000-0.060)
--- NOTE | 2019-04-07 19:30 | NUR ---
RPEORT RECIEVED AND ROUNDING COMPLETE. PT SITTING UP IN HER BED WATCHING T.V. PT'S SON AND SPOUSE AT BEDSIDE. PT ASKED FOR A FAN FOR ROOM. PT IS ALERT AND ORIENTED X4. ASSESMENT COMPLETE. PT STATES NO NEEDS AT THIS TIME CALL LIGHT WITHIN REACH AND BED IN LOWEST POSITION.
[2019-04-07 22:40] LABS: CKMB 0.6 U/L (0.0-3.6); CREATINE KINASE 32 UL (21-215); TROPONIN-I < 0.017 ng/mL (0.000-0.060)
[2019-04-08] VITALS: BP 108/65
--- NOTE | 2019-04-08 01:07 | NUR ---
I have reviewed this patient and I concur with the Shift Assessment completed by the Licensed Practical Nurse today this shift.
[2019-04-08 04:30] VITALS: BP 112/57
--- NOTE | 2019-04-08 07:15 | NUR ---
ASSESSMENT COMPLETED. ALERT AND ORIENTED. NPO FOR CATH. RIGHT FORE ARM SL. UP AB MAGALIE. PRE OP GIVEN, AWAITING CATH.
[2019-04-08 08:25] LABS: BASOPHILS 0.6 % (0-2); EOSINOPHILS 3.7 % (0-7); HEMATOCRIT 40.6 % (36.0-48.0); HEMOGLOBIN 13.4 g/dL (12-16); IMMATURE GRANULOCYTES 0.2 % (0-5); LYMPHOCYTES 14.8 % (15-50); MCH 28.1 pg (26.0-34.0); MCV 85.1 fL (80.0-100.0); MEAN PLATELET VOLUME 11.1 fL (7.4-10.4); MONOCYTES 9.3 % (2-11); NEUTROPHILS 71.4 % (40-80); PLATELET COUNT 310 10x3/uL (130-400); RBC 4.77 10x6/uL (4.00-5.40); RDW 13.7 % (11.5-14.5)
[2019-04-08 08:26] LABS: WBC 6.2 10x3/uL (4.8-10.8)
[2019-04-08 08:42] LABS: ALBUMIN 3.7 g/dL (3.4-5.0); ANION GAP 12.1 mmol/L (8-16); BILIRUBIN - TOTAL 0.31 mg/dL (0.2-1.3); CALCIUM 9.1 mg/dL (8.5-10.1); CARBON DIOXIDE 30.7 mmol/L (21.0-32.0); CHOL - HDL RATIO 4.7 ratio (2.3-4.1); LDL-HDL RATIO 3.1 ratio (1.5-3.5); POTASSIUM - SERUM 3.8 mmol/L (3.5-5.1); PROTEIN - SERUM 7.1 g/dL (6.4-8.2)
--- NOTE | 2019-04-08 09:05 | NUR ---
BACK FROM VETERINARY MEDICINE TEACHER. SEDATED. TR BAND TO RIGHT WRIST. NO BLEEDING, FINGERS WARM. TELEMERTY SHOWS SR. CALL LIGHT IN REACH WITH SR UP WILL MONITOR. FAMILY AT BEDSIDE.
--- NOTE | 2019-04-08 11:08 | NUR ---
UNABLE TO TAKE TR BAND OFF. STILL BLEEDING WHEN PRESSURE RELIEVED. NO COMPLAINS VOICED
[2019-04-08 12:30] VITALS: BP 95/59
--- NOTE | 2019-04-08 14:40 | NUR ---
PT DISCHARGED. NO BLEEDING TO TR CATH SITE. INSTRUCTIONS GIVEN TO PT AND FAMILY. TO PRIVATE CAR PER WHEELCHAIR.
--- NOTE | 2019-04-09 13:53 | MORECARE ---
CASE MANAGEMENT DISCHARGE SUMMARY PATIENT: ROJAS PANDA UNIT: [id number] ADM DATE: 04/07/19 AGE: 53 : 67 SEX: F ROOM/BED: D.1854 AUTHOR: AMINATA UMANZOR PHYSICIAN: REFERRING PHYSICIAN: MONIQUE MACDONALD MD DATE OF SERVICE: 04/09/19 Discharge Plan Patient Name: ROJAS PANDA Facility: [facility]:[place] : 1965 Planned Disposition: Anticipated Discharge Date: Discharge Date: 04/08/2019 Expected LOS: Initial Reviewer: [email or web address] Initial Review Date: 04/07/2019 Generated: 04/09/19 2:53 pm Patient Name: ROJAS PANDA Page [phone] at 1353 All edits/amendments must be made on the electronic document DICTATION DATE: 04/09/19 1352 MILL SET UP: MADELINE 04/09/19 1352 RPT#: [id number] DC DATE:04/08/19 STATUS: DIS IN [facility] [address] [place] [address] END OF REPORT
== END 2019-04-08 14:50 | disposition home or self-care (01) ==
LOC: D.ER 03:29 → D.M2 12:44 → OBSVTIME 12:44 → D.M2 04-08 14:50
PROVIDERS: Family Medicine; ADMIT Internal Medicine Nephrology; ATTEND Internal Medicine Nephrology
DX: R07.9 Chest pain, unspecified (principal); R00.1 Bradycardia, unspecified; I25.110 Atherosclerotic heart disease of native coronary artery with unstable angina pectoris; E11.9 Type 2 diabetes mellitus without complications

== ENCOUNTER 2019-04-24 21:06 | Observation (INO) | payer MEDICARE ==
[~2019-04-24] VITALS: Ht 152.4 cm; Wt 77.3 kg
[~2019-04-24 21:06] MED LIST changes: +CELEXA20 MG PO
[2019-04-24] MEDS ORDERED: TESSALON PERLE100 MG PO (21:17)
[2019-04-24 22:22] LABS: BASOPHILS 0.4 % (0-2); EOSINOPHILS 2.5 % (0-7); HEMATOCRIT 40.4 % (36.0-48.0); HEMOGLOBIN 13.5 g/dL (12-16); IMMATURE GRANULOCYTES 0.3 % (0-5); LYMPHOCYTES 13.8 % (15-50); MCH 28.3 pg (26.0-34.0); MCHC 33.4 g/dL (31.0-37.0); MCV 84.7 fL (80.0-100.0); MEAN PLATELET VOLUME 11.2 fL (7.4-10.4); PLATELET COUNT 369 10x3/uL (130-400); RBC 4.77 10x6/uL (4.00-5.40); RDW 13.5 % (11.5-14.5); WBC 14.3 10x3/uL (4.8-10.8)
[2019-04-24 22:30] LABS: APPEARANCE HAZY (CLEAR); BILIRUBIN NEGATIVE (NEGATIVE); COLOR RED (YELLOW); GLUCOSE NEGATIVE (NEGATIVE); KETONE NEGATIVE (NEGATIVE); NITRITE NEGATIVE (NEGATIVE); PROTEIN 2+ mg/dL (NEGATIVE); UROBILINOGEN NORMAL (NORMAL)
[2019-04-24 22:31] LABS: RED CELLS - URINE >50 /hpf (0-5); WHITE CELLS - URINE 0-5 /hpf (0-5)
[2019-04-24 22:37] LABS: INR 1.02 (0.85-1.17); PROTIME 12.9 SECONDS (11.6-15.0)
[2019-04-24 22:49] LABS: ALBUMIN 3.9 g/dL (3.4-5.0); ALKALINE PHOSPHATASE 95 U/L (46-116); ALT (SGPT) 31 U/L (10-68); AMYLASE - SERUM 37 U/L (25-115); BILIRUBIN - TOTAL 0.21 mg/dL (0.2-1.3); CALC OSMOLALITY 274 mosm/kg (275-300); CALCIUM 9.5 mg/dL (8.5-10.1); CHLORIDE - SERUM 103 mmol/L (98-107); GLUCOSE 141 mg/dL (74-106); LIPASE 153 U/L (73-393); POTASSIUM - SERUM 3.5 mmol/L (3.5-5.1); PROTEIN - SERUM 7.8 g/dL (6.4-8.2); SODIUM 137 mmol/L (136-145); TROPONIN-I < 0.017 ng/mL (0.000-0.060); UREA NITROGEN 10 mg/dL (7-18); eGFR NON AFRICAN AMERICAN 62 mL/min (90-120)
[2019-04-24 23:39] LABS: HCG URINE NEGATIVE (NEGATIVE)
[2019-04-25] VITALS (8 sets, daily range): BP systolic 89–115; BP diastolic 39–94; Ht 152.4 cm; Wt 77.3 kg
--- NOTE | 2019-04-25 01:45 | NUR ---
RECIEVED REPORT FROM SUMANTH HOWARD IN ER. ARRIVED TO FLOOR IN W/C. TRANSFERED SELF TO W/C. ALERT AND ORIENTED X4. UP AD MAGALIE. C/O PAIN WHEN NEEDED TO URINATE AND STATES "IT HURTS WORSE WHEN I PEE". FINALLY WENT TO THE B/R. AFTERWARDS DID NOT C/O PAIN AGAIN.IV TO RIGHT AC SL.. DENIES ANY NEEDS AT THIS TIME. ASSESSMENT COMPLETED.
--- NOTE | 2019-04-25 04:40 | NUR ---
RESTING IN BED WITH EYES CLOSED AT THIS TIME. SPOUSE AT BEDSIDE. NO S/S OF DISTRESS OBSERVED.
--- NOTE | 2019-04-25 07:40 | NUR ---
REPORT RECEIVED. WILL CONTINUE WITH POC. PT CURRENTLY LYING SEMI FOWLERS. CALL LIGHT W/I REACH. PT IS AAO AND UP AD MAGALIE. RR EVEN AND UNLABORED ON RA. R.AC PIV IS SALINE LOCKED. NO S/S OF DISTRESS NOTED. PT DENIES ANY NEEDS AT THIS TIME. WILL CTM.
--- NOTE | 2019-04-25 11:54 | NUR ---
PREVIOUS PIV INFILTRATED. REMOVED PIV WITH CATHETER TIP FULLY INTACT. STARTED NEW PIV TO THE LEFT HAND. 22GA X1 ATTEMPT. FLUSHED WITH 10ML OF NS TO CONFIRM PATENCY. PT TOLERATED WELL. ABX CURRENTLY INFUSING. PT DENIES ANY NEEDS. WILL CTM.
--- NOTE | 2019-04-25 19:48 | NUR ---
RECIEVED UP IN BED WITH SPOUSE. ALERT AND ORIENTED X4. UP AD MAGALIE TO B/R. IV TO RIGHT AC SL.. STATES PAIN MUCH BETTER TODAY. DENIES ANY NEEDS AT THIS TIME.
[2019-04-26] VITALS: BP 125/59
[2019-04-26 04:00] VITALS: BP 97/60
[2019-04-26 06:35] LABS: HEMATOCRIT 36.3 % (36.0-48.0); IMMATURE GRANULOCYTES 0.4 % (0-5); LYMPHOCYTES 30.4 % (15-50); MCH 28.1 pg (26.0-34.0); MCHC 33.1 g/dL (31.0-37.0); MEAN PLATELET VOLUME 11.2 fL (7.4-10.4); MONOCYTES 7.7 % (2-11); NEUTROPHILS 56.5 % (40-80); PLATELET COUNT 324 10x3/uL (130-400); RBC 4.27 10x6/uL (4.00-5.40); RDW 13.7 % (11.5-14.5)
--- NOTE | 2019-04-26 07:10 | NUR ---
RECEIVED REPORT. ASSUMED CARE OF PATIENT. PATIENT RESTING PEACEFULLY WITH EYES CLOSED. RESP EVEN AND UNLAOBRED. SLIGHT SNORE NOTED. CALL LIGHT WITHIN REACH. PATIENT WITH PERSONAL CELL PHONE WITHIN REACH. NO DISTRESS.
[2019-04-26 07:17] LABS: ALBUMIN 3.5 g/dL (3.4-5.0); ANION GAP 14.3 mmol/L (8-16); BILIRUBIN - TOTAL 0.14 mg/dL (0.2-1.3); CALCIUM 8.7 mg/dL (8.5-10.1); CARBON DIOXIDE 27.2 mmol/L (21.0-32.0); MAGNESIUM - SERUM 2.1 mg/dL (1.8-2.4); POTASSIUM - SERUM 3.5 mmol/L (3.5-5.1); PROTEIN - SERUM 6.9 g/dL (6.4-8.2)
--- NOTE | 2019-04-26 09:30 | NUR ---
PATIENT AMBULATED OFF UNIT TO GO TO THE VENDING MACHINE.
[2019-04-26 09:56] VITALS: BP 137/56
[2019-04-26] MEDS ORDERED: SULFAMETHOXAZOL1 TA3 PO (10:30)
--- NOTE | 2019-04-26 11:10 | NUR ---
22 GAUGE IV REMOVED FROM LEFT HAND. CATHETER TIP INTACT. TOLERATED IV REMOVAL WELL. 2X2 GAUZE APPLIED AND SECURED WITH BANDAID. NO DISTRESS.
--- NOTE | 2019-04-26 11:20 | NUR ---
DISCHARGE INSTRUCTIONS PROVIDED TO PATIENT AND HER . PATIENT VERBALIZED UNDERSTANDING OF ALL INSTRUCTIONS PROVIDED.
--- NOTE | 2019-04-26 11:35 | NUR ---
PATIENT AMBULATED OFF UNIT WITH ALL PERSONAL BELONGINGS. PATIENT IN NO DISTRESS UPON LEAVING UNIT. PATIENT CHOSE TO AMBULATE AND REFUSED A WHEELCHAIR.
== END 2019-04-26 11:35 | disposition home or self-care (01) ==
LOC: D.ER 21:06 → D.M2 04-25 00:32 → OBSVTIME 04-25 00:32 → D.M2 04-26 11:35
PROVIDERS: Family Medicine; ADMIT Internal Medicine Nephrology; ATTEND Internal Medicine Nephrology
DX: N30.91 Cystitis, unspecified with hematuria (principal); I25.10 Atherosclerotic heart disease of native coronary artery without angina pectoris; R00.1 Bradycardia, unspecified; E11.65 Type 2 diabetes mellitus with hyperglycemia; Z87.891 Personal history of nicotine dependence

== ENCOUNTER → 2019-05-13 19:55 | Outpatient (CLI) | payer MEDICARE ==
[2019-04-25 16:50] VITALS: BMI 35.3
[~2019-05-13 19:55] MED LIST changes: +SULFAMETHOXAZOL1 TA3 PO; +TESSALON PERLE100 MG PO
== END | disposition home or self-care (01) ==
LOC: D.LABREF 19:55
PROVIDERS: ATTEND Urology
DX: R31.0 Gross hematuria (principal)

== ENCOUNTER 2019-06-09 05:41 | Day surgery (SDC) | payer MEDICARE ==
[~2019-06-09] VITALS: Ht 152.4 cm; Wt 79.8 kg
[2019-06-09 06:10] LABS: BASOPHILS 0.6 % (0-2); EOSINOPHILS 3.7 % (0-7); IMMATURE GRANULOCYTES 0.1 % (0-5); LYMPHOCYTES 32.3 % (15-50); MCH 28.5 pg (26.0-34.0); MCHC 34.1 g/dL (31.0-37.0); MCV 83.5 fL (80.0-100.0); MEAN PLATELET VOLUME 10.5 fL (7.4-10.4); MONOCYTES 8.1 % (2-11); NEUTROPHILS 55.2 % (40-80); PLATELET COUNT 332 10x3/uL (130-400); RBC 4.91 10x6/uL (4.00-5.40); RDW 13.6 % (11.5-14.5); WBC 7.8 10x3/uL (4.8-10.8)
[2019-06-09 06:30] LABS: ANION GAP 10.7 mmol/L (8-16); CALCIUM 9.4 mg/dL (8.5-10.1); CARBON DIOXIDE 30.2 mmol/L (21.0-32.0); POTASSIUM - SERUM 3.9 mmol/L (3.5-5.1)
[2019-06-09 07:21] VITALS: BP 121/75; Ht 152.4 cm; Wt 79.8 kg
--- NOTE | 2019-06-09 10:51 | OP ---
PATIENT NAME: ROJAS GROSS MEDICAL RECORD: [id number] :67 LOCATION:D.OPS ADMISSION DATE: SURGEON: MARTY MORRIS MD DATE OF OPERATION: 06/09/2019 SURGEON: Marty Morris MD ANESTHESIA: TIVA by Sophia Vallecillo CRNA. DIAGNOSES: Microscopic hematuria, interstitial cystitis. PROCEDURE: Cystoscopy, hydrodistention of the bladder, intravesical Rimso instillation. FINDINGS: Single ureteral orifices bilaterally, diffuse bladder inflammation. No bladder tumors. CLINICAL HISTORY: This is a 53-year-old female, who was a former smoker who was found to have gross hematuria. She had a CT scan of the abdomen and pelvis, which showed normal kidneys without any stones, tumors or hydronephrosis. She had urine sent for culture and cytology and these were negative. She comes today for cystoscopy for completion of the hematuria workup. She also has symptoms of pelvic pain with urinary urgency and urge incontinence as well as urinary frequency. These are suggestive of interstitial cystitis. SHE IS ALLERGIC TO PENICILLIN, OXYCODONE AND OXYCONTIN. She was given Levaquin production estimator to the OR. DESCRIPTION OF PROCEDURE: The patient was given IV sedation. She was then placed into lithotomy position and prepped and draped. Cystoscopy was performed using a 17-[place]er scope and 30-degree lens. The findings are as outlined above. The bladder was distended to 500 mL with saline. This was held for about 2 minutes. The bladder was then emptied through the cystoscope sheath and the scope was removed. A 16-[place] Islander red rubber catheter was inserted into the bladder. Through the lumen of the catheter, we instilled 50 mL of Rimso solution intravesically. The catheter was removed, leaving the solution in the bladder. She will hold the solution for 15 minutes and then void it out. I will see her in followup in 2 weeks' time. TRANSINT:[id number] Voice Confirmation ID: [id number] DOCUMENT ID: [id number] MARTY MORRIS MD at 1051 CC: [id number] DICTATION DATE: 06/09/19 1027 PHOTOVOLTAIC INSTALLER: 06/09/19 [address] [place] [address]
--- NOTE | 2019-06-09 11:26 | NUR ---
1020-REC'D FROM . VSS. DENIES COMPLAINTS.IV PATENT TO RIGHT HAND AT KVO. FULL LIQUID TRAY TO ROOM.
--- NOTE | 2019-06-09 11:27 | NUR ---
[id number]
--- NOTE | 2019-06-09 11:27 | NUR ---
1040- AMBULATED TO RESTROOM AND VOIDED WITHOUT COMPLICATIONS.
--- NOTE | 2019-06-09 11:28 | NUR ---
1110- DISCONTINUED IV FROM RIGHT HAND WITH CATH INTACT. TOLERATED WELL WITHOUT COMPLAINTS. DISPOSED INTO SHARPS.
--- NOTE | 2019-06-09 11:28 | NUR ---
1120- REVIEWED DISCHARGE INSTRUCTIONS WITH PT AND FRIEND WHO ASSOMPANIED. VERBALIZED UNDERSTANDING WITHOUT QUESTIONS OR CONCERNS. DISCHARGED HOME WITH PAPERWORK IN HAND. ESCORTED OUT VIA W/C BY OPS STAFF WITH FRIEND DRIVING HOME.
== END 2019-06-09 11:15 | disposition home or self-care (01) ==
LOC: D.OPS 05:41 → D.PAN 10:30 → D.OPS 10:30
PROVIDERS: Anesthesiology; ATTEND Urology
DX: N30.11 Interstitial cystitis (chronic) with hematuria (principal); Z87.891 Personal history of nicotine dependence; Z88.5 Allergy status to narcotic agent; Z88.0 Allergy status to penicillin; Z01.812 Encounter for preprocedural laboratory examination

== ENCOUNTER → 2019-07-19 14:48 | Outpatient (CLI) | payer MEDICARE ==
[2019-06-09 07:21] VITALS: BMI 34.4
== END | disposition home or self-care (01) ==
LOC: D.LABREF 14:48
PROVIDERS: ATTEND Urology
DX: R31.9 Hematuria, unspecified (principal); D72.819 Decreased white blood cell count, unspecified

== ENCOUNTER → 2019-07-26 14:43 | Outpatient (CLI) | payer MEDICARE ==
[2019-06-09 07:21] VITALS: BMI 34.4
== END | disposition home or self-care (01) ==
LOC: D.LABREF 14:43
PROVIDERS: ATTEND Urology
DX: R31.9 Hematuria, unspecified (principal)